=== PATIENT | female | born 1970 | race Caucasian/White ===

== ENCOUNTER 2017-06-28 10:52 | Emergency (ER) | payer MEDICAID ==
[2017-06-28 10:58] VITALS: TEMP 98.4
--- NOTE | 2017-06-28 11:14 | CPEKG ---
Heart Rate: 84 RR Interval: 714 P-R Interval: 127 QRSD Interval: 78 QT Interval: 336 QTC Interval: 398 P Power: 77 QRS Power: 82 T Wave Power: 61 EKG Severity - NORMAL ECG - EKG Impression: SINUS RHYTHM Electronically Signed By: Raffy Dawson 28-Jun-2017 14:38:38
[2017-06-28 12:22] LABS: % IMMATURE GRANULYOCYTES 0.4 % (0.0-1.1); ABSOLUTE IMMATURE GRANULOCYTES 0.03 10^3/uL (0.00-0.10); ADD DIFF? NO; ADD MORPH? NO; ADD SCAN? NO; ATYPICAL LYMPHOCYTE FLAG 0 (0-99); FRAGMENT RBC FLAG 0 (0-99); HEMATOCRIT 45.9 % (38.0-47.0); HEMOGLOBIN 15.3 g/dL (12.6-16.3); LEFT SHIFT FLG 0 (0-99); LIPEMIA HEMOLYSIS FLAG 80 (0-99); MEAN CELL HEMOGLOBIN 31.3 pg (27.9-34.1); MEAN CELL HEMOGLOBIN CONCENTR. 33.3 g/dL (32.4-36.7); MEAN CELL VOLUME 93.9 fL (81.5-99.8); MEAN PLATELET VOLUME 11.7 fL (8.7-11.7); PLATELET CLUMPS FLAG 0 (0-99); PLATELET COUNT 226 10^3/uL (150-400); RED BLOOD CELL COUNT 4.89 10^6/uL (4.18-5.33); RED CELL DISTRIBUTION WIDTH 12.7 % (11.5-15.2)
[2017-06-28] MEDS ORDERED: NS 1,000 ML IV ONE (12:26)
--- NOTE | 2017-06-28 12:26 | EDPHY ---
H & P Time Seen by Provider: 06/28/17 11:38 HPI/ROS: CHIEF COMPLAINT: Short of breath, chest pain, dizziness HISTORY OF PRESENT ILLNESS: 46-year-old female presents to the emergency department complaining of intermittent dyspnea for the last 3 weeks. She states her symptoms had become worse over last 48 hours especially. She has some associated chest pain and pain in her back with this as well. Today she was feeling nauseous. She was also feeling dizzy especially when she was moving around. She denies abdominal pain. Her last menstrual period was 3 weeks ago and denies . Denies any reported trauma. She tells me that for last 2 year she has had chronic joint pain. She takes gabapentin for this daily. She has been seeing neurologist in the past for this. She states that she has had a thorough workup they do not know why she is having joint pain. REVIEW OF SYSTEMS: Constitutional: No fever, no chills. Eyes: No double or blurry vision. ENT: No sore throat. Respiratory: Shortness of breath. No cough. Cardiac: Chest pain as above Gastrointestinal: No abdominal pain, vomiting or diarrhea. Genitourinary: No dysuria. Musculoskeletal: No neck or back pain. Skin: No rashes. Neurological: No headache. Past Medical/Surgical History: Chronic joint pain on gabapentin Social History: Single Smoking Status: Never smoked Physical Exam: General Appearance: Alert, no distress. Vital signs are stable. Eyes: Pupils equal and round. Extraocular motions are all intact. No nystagmus ENT: Mouth: Mucous membranes moist. Respiratory: No wheezing, rhonchi, or rales, lungs are clear to auscultation. Reproducible pain with palpation to the anterior aspect of her chest to the lower border of the sternum. No palpable crepitus or other bony abnormality. Cardiovascular: Regular rate and rhythm. Gastrointestinal: Abdomen is soft and nontender, no masses, no rebound or guarding, bowel sounds normal. Neurological: Alert and oriented x 3, cranial nerves II through XII grossly intact Skin: Warm and dry, no rashes. Musculoskeletal: Nontender to palpate along the cervical, thoracic or lumbar spine. Neck is supple. Extremities: Full range of motion and no peripheral edema. Psychiatric: Patient is oriented X 3, there is no agitation. Constitutional: Initial Vital Signs Temperature (C) 36.9 C 06/28/17 10:53 Heart Rate 87 06/28/17 10:53 Respiratory Rate 18 06/28/17 10:53 Blood Pressure 119/84 H 06/28/17 10:53 O2 Sat (%) 98 06/28/17 10:53 O2 Delivery Mode Room Air Allergies/Adverse Reactions: No Known Allergies Allergy (Unverified 08/03/11 11:44) Home Medications: Medication Instructions Recorded GABAPENTIN 06/28/17 Medical Decision Making ED Course/Re-evaluation: Patient had IV established and laboratory studies were drawn. The patient had a negative troponin. Her D-dimer was not elevated. I doubt this patient has pulmonary embolism. EKG was unremarkable. The case was discussed with Dr. Raffy Dawson, secondary supervising physician, who did not directly evaluate the patient but agrees with treatment and plan. Agrees with discharge. The patient did receive IV normal saline. I encouraged close follow-up with her primary care provider as well as circus laborer on-call. She agrees to return to the emergency department if she feels recurring dizziness, lightheadedness, pain in her chest, or if she feels worse in any way. The patient had reproducible chest wall tenderness with palpation. Differential Diagnosis: Dizziness including but not limited to peripheral and central causes of vertigo , orthostatic causes including dehydration, and blood loss. Shortness of breath including but not limited to pulmonary infectious process, COPD, asthma, pulmonary embolus and congestive heart failure. - Data Points Laboratory Results: Laboratory Results 06/28/17 11:29 06/28/17 11:29 06/28/17 06/28/17 06/28/17 11:29 11:29 11:29 WBC RBC Hgb Hct MCV MCH MCHC RDW Plt Count MPV Neut % (Auto) Lymph % (Auto) Wetzel % (Auto) Eos % (Auto) Baso % (Auto) Nucleat RBC Rel Count Absolute Neuts (auto) Absolute Lymphs (auto) Absolute Monos (auto) Absolute Eos (auto) Absolute Basos (auto) Absolute Nucleated RBC Immature Gran % Immature Gran # D-Dimer < 0.27 ug/mLFEU ug/mLFEU (0.00-0.50) Sodium 141 mEq/L mEq/L (134-144) Potassium 4.2 mEq/L mEq/L (3.5-5.2) Chloride 103 mEq/L mEq/L (97-110) Carbon Dioxide 21 mEq/l L mEq/l (22-31) Anion Gap 17 mEq/L H mEq/L (8-16) BUN 20 mg/dL mg/dL (7-23) Creatinine 0.9 mg/dL mg/dL (0.6-1.0) Estimated GFR > 60 Glucose 85 mg/dL mg/dL (70-100) Calcium 10.2 mg/dL mg/dL (8.5-10.4) Troponin I < 0.012 ng/mL ng/mL (0-0.034) Beta HCG, Qual NEGATIVE 06/28/17 11:29 WBC 8.30 10^3/uL 10^3/uL (3.80-9.50) RBC 4.89 10^6/uL 10^6/uL (4.18-5.33) Hgb 15.3 g/dL g/dL (12.6-16.3) Hct 45.9 % % (38.0-47.0) MCV 93.9 fL fL (81.5-99.8) MCH 31.3 pg pg (27.9-34.1) MCHC 33.3 g/dL g/dL (32.4-36.7) RDW 12.7 % % (11.5-15.2) Plt Count 226 10^3/uL 10^3/uL (150-400) MPV 11.7 fL fL (8.7-11.7) Neut % (Auto) 58.3 % % (39.3-74.2) Lymph % (Auto) 32.0 % % (15.0-45.0) Wetzel % (Auto) 6.9 % % (4.5-13.0) Eos % (Auto) 1.3 % % (0.6-7.6) Baso % (Auto) 1.1 % % (0.3-1.7) Nucleat RBC Rel Count 0.0 % % (0.0-0.2) Absolute Neuts (auto) 4.84 10^3/uL 10^3/uL (1.70-6.50) Absolute Lymphs (auto) 2.66 10^3/uL 10^3/uL (1.00-3.00) Absolute Monos (auto) 0.57 10^3/uL 10^3/uL (0.30-0.80) Absolute Eos (auto) 0.11 10^3/uL 10^3/uL (0.03-0.40) Absolute Basos (auto) 0.09 10^3/uL 10^3/uL (0.02-0.10) Absolute Nucleated RBC 0.00 10^3/uL 10^3/uL (0-0.01) Immature Gran % 0.4 % % (0.0-1.1) Immature Gran # 0.03 10^3/uL 10^3/uL (0.00-0.10) D-Dimer Sodium Potassium Chloride Carbon Dioxide Anion Gap BUN Creatinine Estimated GFR Glucose Calcium Troponin I Beta HCG, Qual Medications Given: Discontinued Medications Sodium Chloride (Ns) 1,000 mls @ 0 mls/hr IV ONCE ONE PRN Reason: Wide Open Stop: 06/28/17 12:27 Last Admin: 06/28/17 12:45 Dose: 1,000 mls Departure - Departure Disposition: Home, Routine, Self-Care Clinical Impression: Shortness of breath, Dizzy Condition: Good Instructions: Dyspnea (ED), Dizziness (ED) Additional Instructions: Return to the emergency department if you developed recurring pain in her chest , worsening shortness of breath, or if you feel worse in any way. You should have close follow-up with her primary care provider since all of your laboratory test in the emergency department were within normal range. Referrals: [facility] [Other] - 1-2 days without fail Domo Kuhn MD [Medical Doctor] - As per Instructions (Preparatory Technician on-call)
[2017-06-28 12:27] LABS: ANION GAP 17 mEq/L (8-16); CALCIUM 10.2 mg/dL (8.5-10.4); CARBON DIOXIDE 21 mEq/l (22-31); CHLORIDE 103 mEq/L (97-110); CREATININE 0.9 mg/dL (0.6-1.0); GLOMERULAR FILTRATION RATE > 60; GLUCOSE 85 mg/dL (70-100); POTASSIUM 4.2 mEq/L (3.5-5.2); SODIUM 141 mEq/L (134-144)
[2017-06-28 12:38] LABS: TROPONIN I < 0.012 ng/mL (0-0.034)
[2017-06-28 14:39] VITALS: PULSE 72
[2017-06-28 14:53] VITALS: BP 112/67; RESP 18; O2SAT 95
== END 2017-06-28 14:52 | disposition home or self-care (01) ==
DX: R06.02 Shortness of breath (principal); R42 Dizziness and giddiness